=== PATIENT | female | born 1965 | race Caucasian/White ===

== ENCOUNTER → 2016-11-26 | Outpatient (CLI) | payer BC ==
--- NOTE | 2016-11-29 13:06 | MM ---
Reason for exam: screening (asymptomatic). Last mammogram was performed 2 years and 3 months ago. History: Patient is postmenopausal. Physical Findings: A clinical breast exam by your physician is recommended on an annual basis and results should be correlated with mammographic findings. MG Screening Mammo w CAD Bilateral CC and MLO view(s) were taken. Prior study comparison: September 09, 2014, bilateral MG screening mammo w CAD. July 16, 2011, bilateral digital screening mammo w/CAD. The breast tissue is almost entirely fat. No significant changes when compared with prior studies. ASSESSMENT: Benign, BI-RAD 2 RECOMMENDATION: Routine screening mammogram of both breasts in 1 year.
== END | disposition home or self-care (01) ==
LOC: RADMAMWWP 16:52
PROVIDERS: ATTEND Obstetrics & Gynecology
DX: Z12.31 Encounter for screening mammogram for malignant neoplasm of breast (principal)

== ENCOUNTER → 2018-11-07 | Outpatient (CLI) | payer BC ==
--- NOTE | 2018-11-07 12:37 | CT ---
EXAMINATION TYPE: CT sinus wo con DATE OF EXAM: 11/07/2018 COMPARISON: None HISTORY: 53-year-old female Sinus problems x [address] DLP: 641.6 mGycm Automated exposure control for dose reduction was used. TECHNIQUE: Noncontrast axial views of the paranasal sinuses were obtained. Coronal reconstructions pe rformed. FINDINGS: PARANASAL SINUSES: Only trace mucosal thickening along the roofs of the maxillary sinuses. Otherwise, the frontal, ethm oid, maxillary and sphenoid sinuses are clear and well pneumatized. There is no air-fluid level. Reactive randell- osteogenesis is not seen. There is no destruction of the osseous leiva of the paranasal sinuses. THE NASAL CAVITY: The osteomeatal complexes are patent. Very slight rightward nasal septal deviation. The imaged brain and orbits are normal in appearance. Mastoid air cells are only partially imaged. The visualized mastoid air cells and middle ear cavities remain pneumatized. Reformatted images confirm above findings. IMPRESSION: Only trace mucosal thickening along the roofs of the maxillary sinuses. Slight rightward nasal septal deviation.
== END ==
LOC: RADCTMAIN 11:38
PROVIDERS: ATTEND Otolaryngology
DX: J34.2 Deviated nasal septum (principal)
CPT/HCPCS: 70486

== ENCOUNTER → 2018-11-25 | Outpatient (CLI) | payer BC ==
--- NOTE | 2018-11-27 09:28 | MM ---
Reason for exam: screening (asymptomatic). Last mammogram was performed 2 years ago. History: Patient is postmenopausal. Physical Findings: A clinical breast exam by your physician is recommended on an annual basis and results should be correlated with mammographic findings. MG Screening Mammo w CAD Bilateral CC and MLO view(s) were taken. Prior study comparison: November 26, 2016, bilateral MG screening mammo w CAD. September 09, 2014, bilateral MG screening mammo w CAD. The breast tissue is almost entirely fat. No significant changes when compared with prior studies. ASSESSMENT: Negative, BI-RAD 1 RECOMMENDATION: Routine screening mammogram of both breasts in 1 year.
== END | disposition home or self-care (01) ==
LOC: RADMAMWWP 08:18
PROVIDERS: ATTEND Obstetrics & Gynecology
DX: Z12.31 Encounter for screening mammogram for malignant neoplasm of breast (principal)
CPT/HCPCS: 77067

== ENCOUNTER → 2020-11-25 | Outpatient (CLI) | payer BC ==
--- NOTE | 2020-11-26 08:46 | MM ---
Reason for exam: screening (asymptomatic). Last mammogram was performed 2 years ago. History: Patient is postmenopausal. Family history of breast cancer in maternal aunt. Physical Findings: A clinical breast exam by your physician is recommended on an annual basis and results should be correlated with mammographic findings. MG Screening Mammo w CAD Bilateral CC and MLO view(s) were taken. Prior study comparison: November 25, 2018, bilateral MG screening mammo w CAD. November 26, 2016, bilateral MG screening mammo w CAD. The breast tissue is almost entirely fat. No significant changes when compared with prior studies. ASSESSMENT: Negative, BI-RAD 1 RECOMMENDATION: Routine screening mammogram of both breasts in 1 year.
== END | disposition home or self-care (01) ==
LOC: RADMAMWWP 07:07
PROVIDERS: ATTEND Obstetrics & Gynecology
DX: Z12.31 Encounter for screening mammogram for malignant neoplasm of breast (principal); Z78.0 Asymptomatic menopausal state; Z80.3 Family history of malignant neoplasm of breast
CPT/HCPCS: 77067

== ENCOUNTER → 2021-03-24 | Outpatient (CLI) | payer BC ==
--- NOTE | 2021-03-24 10:17 | CT ---
EXAMINATION TYPE: CT urogram wo/w con DATE OF EXAM: 03/24/2021 HISTORY: gross hematuria CT DLP: 2224.3mGycm Automated Exposure Control for Dose Reduction was Utilized. CONTRAST: CT scan of the abdomen and pelvis is performed without oral without and with IV Contrast, patient inj ected with 100 mL of Isovue 300. Urogram protocol with 3-D reconstructed images created on an [employer] workstation and reviewed. COMPARISON: None. FINDINGS: KUB: Noncontrast images show no renal calculi bilaterally. Postcontrast images show symmetric cortica l medullary uptake and excretion without concerning solid or cystic renal mass or hydronephrosis seen bilaterally. Delayed postcontrast imaging shows complete enhancement of the ureters without obstruct ing calculus or filling defect. There is satisfactory distention of the bladder without intraluminal mass or calculus. No suspicious wall thickening. Small focus of air nondependently in the bladder axi al image 118 series 5 noted raises concern for possible fistulous communication if there has not been recent catheterization, correlate clinically. LUNG BASES: No significant abnormality is appreciated. LIVER/GB: No significant abnormality is appreciated. PANCREAS: No significant abnormality is seen. SPLEEN: No significant abnormality is seen. ADRENALS: No significant abnormality is seen. BOWEL: Diverticular disease in the proximal to mid sigmoid colon. UTERUS/ADNEXA: Slightly anteverted uterus with lobulated contour suggesting underlying fibroid. LYMPH NODES: No greater than 1cm abdominal or pelvic lymph nodes are appreciated. OSSEOUS STRUCTURES: No significant abnormality is seen. OTHER: Small to tiny fat-containing umbilical hernia. IMPRESSION: Source of hematuria not identified. Other findings as noted above.
== END | disposition home or self-care (01) ==
LOC: RADCTMAIN 08:46
PROVIDERS: ATTEND Urology
DX: R31.0 Gross hematuria (principal)
CPT/HCPCS: 74178; 74400; Q9967

== ENCOUNTER → 2021-11-02 | Outpatient (CLI) | payer BC ==
--- NOTE | 2021-11-02 11:25 | US ---
EXAMINATION TYPE: US carotid duplex BILAT DATE OF EXAM: 11/02/2021 COMPARISON: NONE CLINICAL HISTORY: H53.122 TRANSIENT VISUAL LOSS,R51.9 HEADACHE. Pt states recent changes in vision EXAM MEASUREMENTS: RIGHT: Peak Systolic Velocity (PSV) cm/sec ----- Right CCA: 80.9 ----- Right ICA: 70.3 ----- Right ECA: 63.3 ICA/CCA ratio: 0.9 RIGHT: End Diastole cm/sec ----- Right CCA: 32.5 ----- Right ICA: 36.3 ----- Right ECA: 13.6 LEFT: Peak Systolic Velocity (PSV) cm/sec ----- Left CCA: 86.7 ----- Left ICA: 89.7 ----- Left ECA: 72.9 ICA/CCA ratio: 1.0 LEFT: End Diastole cm/sec ----- Left CCA: 37.4 ----- Left ICA: 47.9 ----- Left ECA: 24.8 VERTEBRALS (direction of flow): Right Vertebral: Antegrade Left Vertebral: Antegrade Rhythm: Normal No significant stenosis seen bilaterally IMPRESSION: No evidence for hemodynamically significant stenosis. Criteria for Assigning % of Stenosis / Diameter reduction (Estimation based on the indirect measurements of the internal carotid artery velocities (ICA PSV). 1. Normal (no stenosis)=ICA PSV < 125 cm/s: ratio < 2.0: ICA EDV<40 cm/s. 2. Less than 50% stenosis=ICA PSV < 125 cm/s: ratio < 2.0: ICA EDV<40 cm/s. 3. 50 to 69% stenosis=ICA PSV of 125 to 230 cm/s: ration 2.0 ? 4.0: ICA EDV 40-100 cm/s. 4. Greater than 70% stenosis to near occlusion= ICA PSV > 230 cm/s: ratio > 4.0: ICA EDV > 100 cm/s. 5. Near occlusion= ICA PSV velocities may be low or undetectable: variable ratio and ICA EDV. 6. Total occlusion=unable to detect flow.
--- NOTE | 2021-11-02 12:38 | CT ---
EXAMINATION TYPE: CT head without contrast CT angio head DATE OF EXAM: 11/02/2021 COMPARISON: None HISTORY: 56-year-old female H53.122, R51.9. Blurred vision and headaches. TECHNIQUE: Contiguous axial scanning of the head performed without and with IV Contrast, patient inje cted with 100ml mL of Isovue 370. Coronal and sagittal reconstructions performed. 3-D reconstructions generated on a dedicated independent workstation. CT DLP: 2244 mGycm Automated exposure control for dose reduction was used. FINDINGS: CT HEAD WITHOUT CONTRAST: No evidence for acute intracranial hemorrhage, acute ischemic change, mass, mass effect, midline shif t, or extra-axial fluid collection. No hydrocephalus. No effacement of cerebral sulci or basal subara chnoid cisterns. Leigh-white matter differentiation is maintained. Paranasal sinuses and mastoid air cells well pneumatized. Orbits and globes are intact. CT ANGIOGRAPHY: The vertebral arteries are codominant. Vertebral and basilar arteries are patent. There is a tiny pos terior communicating artery on the left and a small 2 mm infundibulum at the left [employer] insertion, thin cut axial image 192. Otherwise, the posterior circulation is patent. The internal carotid arteries and remainder of the anterior circulation is patent. No aneurysmal change is seen. The superior sagittal sinus and transverse sinuses are patent. IMPRESSION: 1. NO ACUTE INTRACRANIAL ABNORMALITY SEEN. 2. NO LARGE VESSEL INTRACRANIAL ARTERIAL OCCLUSION, SIGNIFICANT STENOSIS, OR ANEURYSMAL CHANGE IS SEE N.
== END | disposition home or self-care (01) ==
LOC: RADUSWWP 10:49
PROVIDERS: ATTEND Family Medicine
DX: H53.122 Transient visual loss, left eye (principal); R51.9 Headache, unspecified
CPT/HCPCS: 93880; 70496; Q9967

== ENCOUNTER → 2024-03-23 | Outpatient (CLI) | payer BC ==
--- NOTE | 2024-04-18 12:38 | MM ---
Reason for Exam: Screening (asymptomatic). Last mammogram was performed 3 year(s) and 4 month(s) ago. Patient History: Menarche at age 10. First Full-Term at age 28. Late child-bearing (after 28). Postmenopausal. Maternal aunt had breast cancer. Risk Values: Virgen 5 year model risk: 2.0%. NCI Lifetime model risk: 10.0%. Prior Study Comparison: 11/26/2016 Bilateral Screening Mammogram, [facility]. 11/25/2018 Bilateral Screening Mammogram, [facility]. 11/25/2020 Bilateral Screening Mammogram, [facility]. Tissue Density: The breasts are almost entirely fatty. Findings: Analyzed By CAD. Right breast: There is no suspicious group of microcalcifications or new suspicious mass. Left breast: There is no suspicious group of microcalcifications or new suspicious mass. Overall Assessment: Negative, BI-RAD 1 Management: Screening Mammogram of both breasts in [address] [facility] will attempt to contact patient to return for supplemental views and ultrasound if indicated. Patient should continue monthly self-breast exams. A clinical breast exam by your physician is recommended on an annual basis. This exam should not preclude additional follow-up of suspicious palpable abnormalities. Note on Virgen scores and lifetime risk: 1. A Virgen score greater than 3% is considered moderate risk. If this is the case, consider specialist referral to assess eligibility for a risk reducing agent. 2. If overall lifetime risk for the development of breast cancer is 20% or higher, the patient may qualify for future screening with alternating mammogram and breast MRI. Electronically signed and approved by: Stanley Curiel DO
== END | disposition home or self-care (01) ==
LOC: RADMAMWWP 09:05
PROVIDERS: ATTEND Obstetrics & Gynecology
DX: Z12.31 Encounter for screening mammogram for malignant neoplasm of breast (principal); Z78.0 Asymptomatic menopausal state; Z80.3 Family history of malignant neoplasm of breast
CPT/HCPCS: 77063; 77067